=== PATIENT | male | born 1970 | race Caucasian/White ===

== ENCOUNTER 2024-04-01 20:14 | Emergency (ER) | payer BC, SELFPAY ==
[2024-04-01 20:15] VITALS: BP 176/113
[2024-04-01] MEDS: ADACEL 0.5 ML IM (21:07)
[2024-04-01 21:11] VITALS: BP 166/93
--- NOTE | 2024-04-01 21:32 | ED.SKININJ ---
HPI-Injury
General
Chief Complaint: Skin Surface Trauma
Source: patient
Exam Limitations: none
Time Seen by Provider: 04/01/24 20:40
Nursing documentation reviewed up to this point in time: agreed with
History of Present Illness-Injury
Is this injury a work related problem?: No
Is pt an associate of [facility]/[place]?: No
Initial Injury comments:
Accidentally cut self with knife while trying to open a box. Sustained laceration to left dorsal thumb. Injury occurred just [employer]. Full ROM to finger.
Past History
Past History
ED Past Medical History: None
Social History
Tobacco: Non-smoker
Employment: Employed
Review of Systems
Review of Systems
Allergies reviewed?: Yes
All Other Systems: ROS reviewed and negative except as documented in HPI and ROS
Constitutional: Reports no symptoms
Musculoskeletal: Reports no symptoms
Skin: Reports other (Laceration to left dorsal thumb)
Neurological: Reports no symptoms
Psychiatric: Reports no symptoms
Skin Exam
Laceration
Left Dorsal Thumb:
Length in cm: 1.5
Orientation: vertical
Type of Laceration: simple
Any active bleeding?: no active bleeding
Distal skin color and temperature: normal-warm & good color
Normal distal neurovascular exam: Yes
Range of motion: full
Phy Exam
General Physical Exam
General Presentation: well appearing and no apparent distress
General age: appears stated age
General Skin: warm and dry
General Habitus: normal
General Mental: alert
Musculoskeletal Exam
Musculoskeletal Exam: full ROM and neuro vasc intact
Skin Exam
Skin Exam: normal color, warm/dry and no rash
Psychiatric Exam
Psychiatric Exam: normal mood/affect
Course
Orders/Labs/Results
Orders:
Orders
04/01/24 20:58
Tetanus/Diphth/Acelpertussis [Adacel] 0.5 ml IM .ONCE ONE
Vital Signs
Initial and Last Documented VS:
Initial Vital Signs
Temp Pulse Resp BP Pulse Ox
98.2 F 74 16 176/113 98
04/01/24 20:15 04/01/24 20:15 04/01/24 20:15 04/01/24 20:15 04/01/24 20:15
Last Documented Vital Signs
Temp Pulse Resp BP Pulse Ox
98.2 F 74 18 166/93 98
04/01/24 20:15 04/01/24 21:11 04/01/24 21:11 04/01/24 21:11 04/01/24 20:15
Procedures
Laceration Closure
Left Dorsal Thumb:
Status of Wound: clean
Description of Wound Edges: sharp
Preparation: cleaned with saline and cleaned with Betadine
Anesthesia: 1% Lidocaine
Revision/Debridement: routine- no revision
Wound exploration: explored to base- no FB
Type of Closure: single layer closure
Skin Closure Material: 5-0 nylon
Number of sutures: 3
*Critical Care Note
Total Time (30-74mins, 75-104mins- exclusive of procedures): Not Applicable
ED Attending Note
-
Portions of this chart may have been created with voice recognition software.� Occasional wrong word or��sound alike� substitutions may have occurred due to the inherent limitations of voice recognition software.
Discharge Plan
Departure
Patient Disposition: Home (Routine Discharge)
Date of Disposition: 04/01/24
Time of Disposition: 20:58
Patient with high blood pressure during this ER visit?: No
Condition: Good
Covid-19: Not Applicable
Discharge Problem:
Laceration of thumb
Instructions: Laceration Repair With Stitches (DC)
Prescriptions:
No Action
cephalexin [Keflex] 500 MG capsule
500 mg PO QID Qty: 40 0RF
Referrals:
Sharri De León NP [Family Provider] - (Sutures can be removed in 7-10 days)
Darrly Matson MD [Active] - (Follow up for any weakness in your finger)
Interventions
Interventions:
*Risk Screen - Suicide Last Done: 04/01/24 20:15
*General Assessment Last Done: 04/01/24 20:15
*Neglect/Abuse Screening Last Done: 04/01/24 21:15
*ED COVID-19 Vaccine History Last Done: 04/01/24 20:15
*Nursing Disposition Last Done: 04/01/24 21:15
ED-Skin Assessment Last Done: 04/01/24 20:54
Discharge Date and Time
Discharge Date/Time: 04/01/24 21:16
Print Language: MAURITANIAN
== END 2024-04-01 21:16 | disposition home or self-care (01) ==
LOC: EMR 20:14
PROVIDERS: EMERGENCY PHYSICIAN Emergency Medicine; FAMILY PHYSICIAN Nurse Practitioner Adult Health
DX: S61.012A Laceration without foreign body of left thumb without damage to nail, initial encounter (principal); W26.0XXA Contact with knife, initial encounter; Z23 Encounter for immunization
CPT/HCPCS: 99282; 12001; 90471; 90715